=== PATIENT | female | born 1980 | race Two or more races ===

== ENCOUNTER 2024-02-03 08:50 | Day surgery (SDC) | payer MEDICAID, SELFPAY ==
[2024-02-02 13:40] LABS: HCG Qualitative,Urine Negative
[2024-02-02 15:05] VITALS: BMI 29.8
[2024-02-03] VITALS (12 sets, daily range): BP systolic 90–106; BP diastolic 44–68; PULSE 50–85; RESP 11–17; TEMP 36.4–37; O2SAT 95–100; BMI 29.5
[2024-02-03] MEDS: fentaNYL CIT INJ 50 mCg/ML AMP 2ML (ASD USE ONLY) IV (11:18)
[2024-02-03] MEDS: MIDAZOLAM INJ 1 MG/ML VIAL 2 ML (ASD USE ONLY) 2 MG IV (11:21)
[2024-02-03] MEDS: DiphenhydrAMINE INJ 50 MG/ML VIAL 25 MG IV (11:22)
== END 2024-02-03 12:24 | disposition home or self-care (01) ==
PROVIDERS: PCP Nurse Practitioner Family; Referring Provider Internal Medicine Gastroenterology; Visit Provider Internal Medicine Gastroenterology
PROC: 0DBE8ZX Excision of Large Intestine, Via Natural or Artificial Opening Endoscopic, Diagnostic (ICD-10-PCS; CPT 45380; principal; 2024-02-03 09:00)
PROC: (CPT 43239; 2024-02-03 09:00)
DX: K64.0 First degree hemorrhoids (principal); K29.70 Gastritis, unspecified, without bleeding
CPT/HCPCS: 45380; 43239; 81025; A4217; J1200; J2250; J3010

== ENCOUNTER → 2024-02-06 | Outpatient (BNVA) | payer MEDICAID, SELFPAY | END | disposition home or self-care (01) | PROVIDERS: PCP Nurse Practitioner Primary Care; Referring Provider Nurse Practitioner Primary Care; Visit Provider Nurse Practitioner Primary Care | DX: M77.8 Other enthesopathies, not elsewhere classified (principal) | CPT/HCPCS: 99213 ==

== ENCOUNTER → 2024-03-01 | Outpatient (BNVA) | payer MEDICAID, SELFPAY | END | disposition home or self-care (01) | PROVIDERS: PCP Nurse Practitioner Primary Care; Referring Provider Nurse Practitioner Primary Care; Visit Provider Nurse Practitioner Primary Care | DX: M77.8 Other enthesopathies, not elsewhere classified (principal) | CPT/HCPCS: 99213 ==

== ENCOUNTER → 2024-03-26 | Outpatient (CLI) | payer MEDICAID, SELFPAY ==
--- NOTE | 2024-03-26 16:19 | XR_ITS ---
Examination: Right elbow 3 views Technique: Elbow AP, oblique, lateral 3 views Exam date and time: March 26, 2024 1641 hours INDICATIONS: Bilateral foot pain beginning 2 months ago. FINDINGS: No fracture or dislocation Mild calcification adjacent to the lateral humeral condyle No elbow effusion IMPRESSION: Lateral elbow epicondylitis No fracture.
== END | disposition home or self-care (01) ==
LOC: CDIM 16:12
PROVIDERS: PCP Nurse Practitioner Family; Referring Provider Nurse Practitioner Primary Care; Visit Provider Nurse Practitioner Primary Care
DX: M77.11 Lateral epicondylitis, right elbow (principal)
CPT/HCPCS: 73080

== ENCOUNTER → 2024-03-30 | Outpatient (BNVA) | payer MEDICAID, SELFPAY | END | disposition home or self-care (01) | PROVIDERS: PCP Nurse Practitioner Family; Referring Provider Nurse Practitioner Family; Visit Provider Nurse Practitioner Family | DX: M77.8 Other enthesopathies, not elsewhere classified (principal); Z71.2 Person consulting for explanation of examination or test findings | CPT/HCPCS: 99212; G0463 ==

== ENCOUNTER 2024-04-24 16:52 | Emergency (ER) | payer MEDICAID, SELFPAY ==
[2024-04-24 16:53] VITALS: BMI 30.5
[2024-04-24 17:35] VITALS: BP 116/75; PULSE 75; RESP 16; TEMP 37.2; O2SAT 98
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
[2024-04-24] MEDS: CYCLObenzaPRINE 5 MG TABLET 10 MG PO (18:40)
[2024-04-24] MEDS: KETOROLAC INJ 60 MG/2 ML VIAL 30 MG IM (18:41)
== END 2024-04-24 21:25 | disposition home or self-care (01) ==
PROVIDERS: Emergency Provider Emergency Medicine; PCP Nurse Practitioner Family
DX: S13.4XXA Sprain of ligaments of cervical spine, initial encounter (principal); V89.2XXA Person injured in unspecified motor-vehicle accident, traffic, initial encounter; Y92.410 Unspecified street and highway as the place of occurrence of the external cause
CPT/HCPCS: 72040; 96372; 99283; J1885; A9270

== ENCOUNTER → 2024-06-01 | Outpatient (BNVA) | payer MEDICAID, SELFPAY | END | disposition home or self-care (01) | PROVIDERS: PCP Nurse Practitioner Family; Referring Provider Nurse Practitioner Family; Visit Provider Nurse Practitioner Family | DX: M77.8 Other enthesopathies, not elsewhere classified (principal) | CPT/HCPCS: 99213 ==

== ENCOUNTER → 2025-01-17 | Outpatient (BNVA) | payer MEDICAID, SELFPAY | END | disposition home or self-care (01) | PROVIDERS: PCP Nurse Practitioner Family; Referring Provider Nurse Practitioner Family; Visit Provider Nurse Practitioner Family | DX: Z12.39 Encounter for other screening for malignant neoplasm of breast (principal); R10.84 Generalized abdominal pain | CPT/HCPCS: 99213 ==

== ENCOUNTER → 2025-01-18 | Outpatient (CLI) | payer MEDICAID, SELFPAY ==
--- NOTE | 2025-01-18 15:17 | XR_ITS ---
EXAMINATION: Cervical spine 3 views TECHNIQUE: AP lateral coned AP odontoid cervical spine 3 views Date and time: January 18, 2025, 1625 hours, comparison April 24, 2024 INDICATIONS: Neck pain months. FINDINGS: Adequate alignment cervical vertebral bodies No cervical fracture. Intact odontoid Moderate degenerative disc disease C5-C6 with posterior osteophyte formation Intact odontoid IMPRESSION: Moderate degenerative disc disease C5-C6
--- NOTE | 2025-01-18 15:17 | XR_ITS ---
Examination: Scoliosis survey 2, views. Technique: AP standing thoracic, AP standing lumbar spine, two views. Exam date and time: January 18, 2025, 1615 hours INDICATIONS: Diagnosis scoliosis on clinical examination Findings: Moderate osteopenia Thoracic dextroscoliosis 7 degrees Lumbar levoscoliosis 12 degrees No segmentation anomalies Mild narrowing hip joints IMPRESSION: Scoliosis as above
== END | disposition home or self-care (01) ==
LOC: CDIM 15:00
PROVIDERS: PCP Nurse Practitioner Family; Referring Provider Nurse Practitioner Family; Visit Provider Nurse Practitioner Family
DX: M50.322 Other cervical disc degeneration at C5-C6 level (principal); M41.84 Other forms of scoliosis, thoracic region; M41.86 Other forms of scoliosis, lumbar region
CPT/HCPCS: 72040; 72082

== ENCOUNTER → 2025-01-18 | Outpatient (BNVA) | payer MEDICAID, SELFPAY | END | disposition home or self-care (01) | PROVIDERS: PCP Nurse Practitioner Family; Referring Provider Nurse Practitioner Family; Visit Provider Nurse Practitioner Family | DX: Z71.2 Person consulting for explanation of examination or test findings (principal); M41.9 Scoliosis, unspecified; M54.2 Cervicalgia; E78.5 Hyperlipidemia, unspecified; E55.9 Vitamin D deficiency, unspecified; R73.03 Prediabetes; E66.9 Obesity, unspecified; Z71.85 Encounter for immunization safety counseling; K02.9 Dental caries, unspecified; Z28.21 Immunization not carried out because of patient refusal; Z72.3 Lack of physical exercise; Z68.30 Body mass index [BMI] 30.0-30.9, adult | CPT/HCPCS: 99173; 99215 ==

== ENCOUNTER → 2025-01-21 | Outpatient (BNVA) | payer MEDICAID, SELFPAY | END | disposition home or self-care (01) | PROVIDERS: PCP Nurse Practitioner Family; Referring Provider Nurse Practitioner Family; Visit Provider Nurse Practitioner Family | DX: Z12.4 Encounter for screening for malignant neoplasm of cervix (principal) | CPT/HCPCS: 81001; 99215; Q0091 ==

== ENCOUNTER → 2025-01-26 | Outpatient (BNVA) | payer MEDICAID, SELFPAY | END | disposition home or self-care (01) | PROVIDERS: PCP Nurse Practitioner Family; Referring Provider Nurse Practitioner Family; Visit Provider Nurse Practitioner Family | DX: E55.9 Vitamin D deficiency, unspecified (principal); M85.80 Other specified disorders of bone density and structure, unspecified site; R94.5 Abnormal results of liver function studies; M50.322 Other cervical disc degeneration at C5-C6 level; E78.5 Hyperlipidemia, unspecified; Z71.2 Person consulting for explanation of examination or test findings | CPT/HCPCS: 99212; G0463 ==

== ENCOUNTER → 2025-02-03 | Outpatient (BNVA) | payer MEDICAID, SELFPAY | END | disposition home or self-care (01) | PROVIDERS: PCP Nurse Practitioner Primary Care; Referring Provider Nurse Practitioner Primary Care; Visit Provider Nurse Practitioner Primary Care | DX: B37.31 Acute candidiasis of vulva and vagina (principal); Z71.2 Person consulting for explanation of examination or test findings | CPT/HCPCS: 99212; G0463 ==

== ENCOUNTER → 2025-03-01 | Outpatient (CLI) | payer MEDICAID, SELFPAY ==
--- NOTE | 2025-03-01 16:20 | XR_ITS ---
Examination: Abdomen AP single view Technique: AP portable supine abdomen, single view Exam date and time: March 01, 2025, 1621 hours INDICATIONS: Right lower abdominal pain beginning 3 years ago. FINDINGS: Intrauterine device central upper pelvis Nonobstructive bowel gas pattern Moderate stool in the right colon No free air No abnormal calcific densities Intact osseous structures IMPRESSION: Nonobstructive bowel gas pattern
== END | disposition home or self-care (01) ==
PROVIDERS: PCP Physician Assistant; Referring Provider Physician Assistant; Visit Provider Physician Assistant
DX: R14.0 Abdominal distension (gaseous) (principal)
CPT/HCPCS: 74018